=== PATIENT | female | born 1975 | race African-American/Black ===

== ENCOUNTER 2020-03-07 14:20 | Emergency (ER) | payer OTHER ==
[~2020-03-07] VITALS: Ht 167.6 cm; Wt 85.7 kg
[2020-03-07 14:40] VITALS: BP 110/73
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
[2020-03-07] MEDS ORDERED: IBU800 MG PO (16:45)
[2020-03-07] MEDS ORDERED: ROBAXIN-500MG ORAL (16:45)
--- NOTE | 2020-03-07 17:09 | NUR ---
ER DISCHARGE NOTE: Patient is cleared to be discharged per ERMD, pt is aox4, on room air, with stable vital signs. pt was given dc and prescription instructions, pt was able to verbalize understanding, pt id band removed. pt is able to ambulate with steady gait. pt took all belongings.
[2020-03-07 17:11] VITALS: BP 114/78
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
== END 2020-03-07 17:11 | disposition home or self-care (01) ==
LOC: EMR 14:45
DX: S92.901A Unspecified fracture of right foot, initial encounter for closed fracture (principal); S93.401A Sprain of unspecified ligament of right ankle, initial encounter; S43.402A Unspecified sprain of left shoulder joint, initial encounter; S16.1XXA Strain of muscle, fascia and tendon at neck level, initial encounter; S00.93XA Contusion of unspecified part of head, initial encounter; V43.52XA Car driver injured in collision with other type car in traffic accident, initial encounter; Y92.411 Interstate highway as the place of occurrence of the external cause; Z88.0 Allergy status to penicillin; Z88.2 Allergy status to sulfonamides; Z88.8 Allergy status to other drugs, medicaments and biological substances
CPT/HCPCS: 29515; 70450; 72125; 99284